=== PATIENT | female | born 1990 | race Caucasian/White ===

== ENCOUNTER 2018-06-29 08:59 | Emergency (ER) | payer MEDICAID ==
[~2018-06-29] VITALS: Ht 149.9 cm; Wt 52.7 kg
[2018-06-29 09:03] VITALS: Ht 149.9 cm; Wt 52.7 kg
[2018-06-29] MEDS ORDERED: PRENAVITE1 TAB PO (09:04)
[2018-06-29 09:40] LABS: BASOPHILS 0.2 % (0-2); EOSINOPHILS 0.6 % (0-7); HEMATOCRIT 33.9 % (36.0-48.0); HEMOGLOBIN 11.4 g/dL (12-16); IMMATURE GRANULOCYTES 0.3 % (0-5); LYMPHOCYTES 26.8 % (15-50); MCH 30.3 pg (26.0-34.0); MCHC 33.6 g/dL (31.0-37.0); MCV 90.2 fL (80.0-100.0); MEAN PLATELET VOLUME 10.9 fL (7.4-10.4); MONOCYTES 5.7 % (2-11); NEUTROPHILS 66.4 % (40-80); PLATELET COUNT 198 10x3/uL (130-400); RBC 3.76 10x6/uL (4.00-5.40); RDW 15.1 % (11.5-14.5); WBC 9.5 10x3/uL (4.8-10.8)
[2018-06-29 09:47] LABS: APPEARANCE CLEAR (CLEAR); BACTERIA MODERATE /hpf (NONE SEEN); BILIRUBIN NEGATIVE (NEGATIVE); COLOR YELLOW (YELLOW); EPITHELIAL CELLS 0-5 /hpf (0-5); GLUCOSE NEGATIVE (NEGATIVE); KETONE NEGATIVE (NEGATIVE); NITRITE NEGATIVE (NEGATIVE); PROTEIN NEGATIVE (NEGATIVE); RED CELLS - URINE 0-5 /hpf (0-5); SPECIFIC GRAVITY 1.015 (1.005-1.020); UROBILINOGEN NORMAL (NORMAL); WHITE CELLS - URINE 0-5 /hpf (0-5)
[2018-06-29 10:02] LABS: ALBUMIN 2.7 g/dL (3.4-5.0); ALKALINE PHOSPHATASE 53 U/L (46-116); ALT (SGPT) 30 U/L (10-68); BILIRUBIN - TOTAL 0.37 mg/dL (0.2-1.3); CALC OSMOLALITY 271 mosm/kg (275-300); CALCIUM 8.4 mg/dL (8.5-10.1); CARBON DIOXIDE 22.1 mmol/L (21.0-32.0); CHLORIDE - SERUM 103 mmol/L (98-107); CREATININE - SERUM 0.7 mg/dL (0.6-1.3); GLUCOSE 78 mg/dL (74-106); POTASSIUM - SERUM 3.7 mmol/L (3.5-5.1); PROTEIN - SERUM 6.5 g/dL (6.4-8.2); SODIUM 137 mmol/L (136-145); UREA NITROGEN 11 mg/dL (7-18); eGFR NON AFRICAN AMERICAN > 90 mL/min (90-120)
[2018-06-29 10:28] LABS: HCG - QUANTITATIVE (MATERNAL) 41644 mIU/mL
[2018-06-29] MEDS ORDERED: MACROBID100 MG PO (12:35)
[2018-06-29 12:55] VITALS: BP 104/68
== END 2018-06-29 12:56 | disposition home or self-care (01) ==
LOC: D.ER 08:59
PROVIDERS: Family Medicine
DX: O23.42 Unspecified infection of urinary tract in pregnancy, second trimester (principal); Z3A.18 18 weeks gestation of pregnancy; O20.9 Hemorrhage in early pregnancy, unspecified

== ENCOUNTER → 2018-09-21 12:10 | Outpatient (CLI) | payer MEDICAID ==
[2018-06-29 09:03] VITALS: BMI 23.4
[~2018-09-21 12:10] MED LIST: MACROBID100 MG PO; PRENAVITE1 TAB PO
[2018-09-21 12:48] LABS: APPEARANCE SL CLDY (CLEAR); BACTERIA MODERATE /hpf (NONE SEEN); BILIRUBIN NEGATIVE (NEGATIVE); CALCIUM OXALATE CRYSTALS 0-5 /hpf (NONE SEEN); COLOR YELLOW (YELLOW); EPITHELIAL CELLS 0-5 /hpf (0-5); GLUCOSE NEGATIVE (NEGATIVE); KETONE NEGATIVE (NEGATIVE); MUCUS <1+ /lpf (NONE SEEN); NITRITE NEGATIVE (NEGATIVE); PROTEIN NEGATIVE (NEGATIVE); SPECIFIC GRAVITY 1.025 (1.005-1.020); UROBILINOGEN NORMAL (NORMAL); WHITE CELLS - URINE OCC /hpf (0-5)
== END | disposition home or self-care (01) ==
LOC: D.LDO 12:10
PROVIDERS: Obstetrics & Gynecology; ATTEND Obstetrics & Gynecology
DX: O26.893 Other specified pregnancy related conditions, third trimester (principal); Z3A.30 30 weeks gestation of pregnancy; R31.9 Hematuria, unspecified

== ENCOUNTER 2018-11-22 08:53 | Inpatient (IN) | payer MEDICAID ==
[2018-11-22] VITALS (11 sets, daily range): BP systolic 92–109; BP diastolic 55–64; BMI 27.1
[2018-11-22 10:16] LABS: HEMATOCRIT 31.9 % (36.0-48.0); HEMOGLOBIN 9.5 g/dL (12-16); MCH 23.2 pg (26.0-34.0); MCHC 29.8 g/dL (31.0-37.0); MCV 77.8 fL (80.0-100.0); MEAN PLATELET VOLUME 10.7 fL (7.4-10.4); RBC 4.1 10x6/uL (4.00-5.40); RDW 18.2 % (11.5-14.5); WBC 17.3 10x3/uL (4.8-10.8)
[2018-11-22 12:45] LABS: UDS - AMPHET NEGATIVE QUAL (NEGATIVE); UDS - BARB NEGATIVE QUAL (NEGATIVE); UDS - BENZO NEGATIVE QUAL (NEGATIVE); UDS - COCAINE NEGATIVE QUAL (NEGATIVE); UDS - OPIATE NEGATIVE QUAL (NEGATIVE); UDS - PCP NEGATIVE QUAL (NEGATIVE); UDS - THC NEGATIVE QUAL (NEGATIVE)
--- NOTE | 2018-11-22 15:01 | NUR ---
RECEIVED PT FROM VIA BED TO ROOM 1273. BED LOCKED AND PLACED IN LOW POSITION. VSS. FUNDUS FIRM AT U/U. RUBRA LOCHIA MOD AMT. NO CLOTS EXPRESSED ON FUNDAL MASSAGE. ABDOMINAL DRESSING DRY WITH 3 AREAS MARKED WITH PEN. ICE PACK TO INCISION. NEG HOMANS' SIGN. PPP. NO EDEMA NOTED TO BLE. SCDS ON BLE. PUMP ON. PIV CLEAR TO LEFT WRIST. NS WITH PITOCIN INFUSING AT 125 ML/HR. SL TO RIGHT HAND. SITE CLEAR. NESBITT TO GRAVITY DRAINING DARK, YELLOW URINE. PT STATES PAIN OF "8" ON 0-10 PAIN SCALE ON ARRIVAL TO ROOM. RR NURSE STATES "I GAVE HER ALL I COULD GIVE HER FOR PAIN". PT ORIENTED TO ROOM, BED, AND CALL LIGHT. SR UP X2. CALL LIGHT IN REACH.
--- NOTE | 2018-11-22 15:10 | NUR ---
TORADOL 30 MG GIVEN PER D. ZANA ANDERSON IVP FOR PT C/O BURNING PAIN OF "8" ON 0-10 PAIN SCALE. PT INSTRUCTED ON MED. VERBALIZES UNDERSTANDING.
--- NOTE | 2018-11-22 15:13 | NUR ---
PT C/O NAUSEA. NO EMESIS NOTED. ZOFRAN 4 MG GIVEN SIVP OVER 2 MINUTES.
--- NOTE | 2018-11-22 15:15 | NUR ---
DILAUDID DIRECTOR DERMATOLOGY STARTED ORDERED. PT INSTRUCTED ON MEDICATION AND USE OF BUTTON.
--- NOTE | 2018-11-22 15:50 | NUR ---
PT INSTRUCTED ON USE OF INCENTIVE SPIROMETER- PULLS 1800. ALSO INSTRUCTED TO COUGH AND DEEP BREATHE. SURGICAL SPLINT PILLOW PROVIDED TO PT. PT DEMONSTRATES UNDERSTANDING.
--- NOTE | 2018-11-22 16:40 | NUR ---
PT LYING IN SEMI-GRAJEDA'S POSITION. SLIGHTLY DROWSY, WAKES UPON ENTERING ROOM. ABDOMINAL DRESSING WITHOUT NEW DRAINAGE, DRY. FRESH ICE PACK TO INCISION. SEVERAL GOLF BALL SIZED AND 1 SOFTBALL SIZED CLOT NOTED ON CHUX/PERIPAD. FUNDUS MASSAGED. FIRM AT U/1. NO CLOTS OR BLOOD EXPELLED ON FUNDAL MASSAGE. PERICARE DONE. RUBRA LOCHIA MOD AMT. CHUX, TOWEL AND PERIPAD CHANGED. PT DENIES NAUSEA. LEMON-NEWTOK SODA PROVIDED.
--- NOTE | 2018-11-22 18:32 | NUR ---
I/O COMPLETED. PERICARE DONE. BED LINENS, CHUX, PINK PAD AND PERIPAD CHANGED. MOD RUBRA LOCHIA NOTED. NO CLOTS NOTED. PT REPOSITIONS TO RIGHT SIDE. PROPPED WITH PILLOW. ICE WATER PROVIDED TO PT. PT ENCOURAGED TO INCREASE PO FLUID INTAKE.
--- NOTE | 2018-11-22 18:49 | NUR ---
REPORT GIVEN TO ON-COMING SHIFT.
--- NOTE | 2018-11-22 19:27 | NUR ---
SHIFT ASSESSMENT COMPLETED AT THIS TIME, PATIENT SITTING UP IN BED, REMAINS AT BEDSIDE IN OPEN CRIB. VS WNL, LOW TRANSVERSE ABDOMINAL DRESSING IN PLACE WITH THREE MARKED SPOTS OF SEROSANGUINOUS DRAINAGE, PERIPAD WITH SCANT RUBRA BLEEDING NOTED. NESBITT CATHETER DRAINING VIA GRAVITY, APPX 35 ML CONCENTRATED URINE NOTED IN UROMETER. SCD BOOTS IN PLACE, REMOVED FOR SKIN INSPECTION, NO REDNESS OR OTHER PROBLEMS NOTED, REATTACHED TO WORKING MACHINE. BED LOCKED IN LOW POSITION, SIDE RAILS UP X2, CALL HERNANDEZ AND TRAY TABLE IN REACH. ICE PACK REMAINS IN PLACE TO ABDOMEN, ICE WATER AND SPRITE ON BEDSIDE TABLE ALONG WITH INCENTIVE SPIROMETER. PT HAS PORTABLE POWER TOOL REPAIRER IN PLACE AND STATES THAT SHE IS USING IT TO RELIEVE HER PAIN. PT ASSISTED WITH REPOSITIONING TO RIGHT SIDE AND PILLOW PLACED BEHIND HER BACK FOR COMFORT. NO FURTHER NEEDS IDENTIFIED. WILL CONTINUE TO MONITOR.
--- NOTE | 2018-11-22 20:00 | NUR ---
LAB CALLED AT THIS TIME TO REMIND THEM OF THE TIMED 1999 BLOOD DRAW.
--- NOTE | 2018-11-22 20:38 | NUR ---
LAB AT BEDSIDE FOR 2000 TIMED DRAW.
[2018-11-22 20:56] LABS: HEMATOCRIT 31.7 % (36.0-48.0); HEMOGLOBIN 9.9 g/dL (12-16); MCH 24.4 pg (26.0-34.0); MCHC 31.2 g/dL (31.0-37.0); MCV 78.3 fL (80.0-100.0); PLATELET COUNT 256 10x3/uL (130-400); RBC 4.05 10x6/uL (4.00-5.40); RDW 17.2 % (11.5-14.5); WBC 18.8 10x3/uL (4.8-10.8)
--- NOTE | 2018-11-22 20:57 | NUR ---
PT SITTING UP IN BED TRYING TO BREASTFEED INFANT, NURSERY RN CALLED FOR ASSISTANCE. TORADOL 30MG SLOW IVP ADMINISTERED AT THIS TIME FOR 8/10 PAIN. APPX 150ML YELLOW URINE NOTED IN BAG. ICE WATER PROVIDED PER REQUEST. NO FURTHER NEEDS IDENTIFIED, WILL CONTINUE TO MONITOR.
--- NOTE | 2018-11-22 21:30 | NUR ---
PT RESTINQ QUIETLY, IN HER ARMS. DENIES NEEDS, WILL CONTINUE TO MONITOR
[2018-11-22 22:02] LABS: LYMPHOCYTES 26 % (15-50); MONOCYTES 2 % (2-11); NEUTROPHILS 72 % (40-80); PLATELET ESTIMATE NORMAL
--- NOTE | 2018-11-22 22:11 | NUR ---
MCBRIDE AT NURSES STATION, LAB RESULTS REPORTED, NO NEW ORDERS NOTED.
--- NOTE | 2018-11-22 23:02 | NUR ---
PATIENT RESTING QUIETLY WITH EYES OPEN. VS TAKEN, WNL. PT RATES HER PAIN 5/10. ACCREDITED FARM MANAGER IN USE. PERCIARE PERFORMED, SMALL RUBRA LOCHIA WITH NO CLOTS NOTED. CLEAN PADS PLACED, AND FRESH ICE PACK PROVIDED FOR ABDOMEN. PT DENIES OTHER NEEDS AT THIS TIME, WILL CONTINUE TO MONITOR.
--- NOTE | 2018-11-23 01:04 | NUR ---
PATIENT SITTING UP IN BED HOLDING INFANT, DENIES ANY NEEDS. WILL CONTINUE TO MONITOR.
--- NOTE | 2018-11-23 02:03 | NUR ---
FITNESS SALES CONSULTANT SYRINGE CHANGED AT THIS TIME. PT RATES HER PAIN /10, ENCOURAGED PT TO USE HER FITNESS SALES CONSULTANT. PT MUNA UNDERSTANDING. WILL CONTINUE TO MONITOR.
--- NOTE | 2018-11-23 04:39 | NUR ---
PATIENT LYING IN BED, RESPIRATIONS EVEN AND NON LABORED. BED REMAINS LOCKED IN LOW POSITION, SIDE RAILS UPX2, CALL HERNANDEZ AND TRAY TABLE IN REACH. WILL CONTINUE TO MONITOR
[2018-11-23 05:48] LABS: BASOPHILS 0.2 % (0-2); EOSINOPHILS 0.8 % (0-7); HEMATOCRIT 29.3 % (36.0-48.0); HEMOGLOBIN 9.1 g/dL (12-16); IMMATURE GRANULOCYTES 0.4 % (0-5); LYMPHOCYTES 19.4 % (15-50); MCH 24.3 pg (26.0-34.0); MCHC 31.1 g/dL (31.0-37.0); MCV 78.1 fL (80.0-100.0); MEAN PLATELET VOLUME 10.6 fL (7.4-10.4); MONOCYTES 6.3 % (2-11); NEUTROPHILS 72.9 % (40-80); PLATELET COUNT 248 10x3/uL (130-400); RBC 3.75 10x6/uL (4.00-5.40); RDW 17.2 % (11.5-14.5); WBC 15.6 10x3/uL (4.8-10.8)
--- NOTE | 2018-11-23 06:25 | NUR ---
TORADOL 30MG ADMINISTERED SLOW IVP PER MD ORDERS FOR PAIN. PERICARE DONE, SMALL RUBRA LOCHIA WITH NO CLOTS, NESBITT CONTINUES TO DRAIN TO GRAVITY.
[2018-11-23 07:19] LABS: RAPID PLASMA REAGIN Non Reactive (Non Reactive)
[2018-11-23 07:50] VITALS: BP 93/50
--- NOTE | 2018-11-23 07:50 | NUR ---
SHIFT ASSESSMENT COMPLETED AT THIS TIME. PT AAOX3. TO ROOM PER Li YIP, CLARICE AND PLACED IN MOTHER'S ARMS FOR FEEDING AT THIS TIME. HR-RRR, PPP, BREATH SOUNDS CLEAR & UNLABORED X2. BOWEL SOUNDS ACTIVE X4. PRIMAPORE DRESSING OVER BLI C/D/I WITH NO ADDITIONAL DRAINAGE NOTED TO DRESSING SINCE AM SHIFT ON 11/22/18. NESBITT CATH DRAINING TO GRAVITY WITH 175 ML CLEAR YELLOW URINE EMPTIED FROM UROMETER. I.S. AT BEDSIDE. PT REPORTS USING IT EVERY HR. CL MEAL TRAY SERVED AT BEDSIDE. DILAUDID DIRECTOR PHYSICAL REMAINS IN PLACE WITH NS WITH 20 U PITOCIN INFUSING AT 125ML/HR. PIV TO LT HAND C/D/I WITHOUT ERYTHEMA OR EDEMA NOTED TO SITE. FUNDUS FIRM, ML, U/1. SMALL LOCHIA RUBRA NOTED TO PERIPAD. PADS NOT CHANGED AT THIS TIME DUE TO PT . RATES PAIN 7/10 AT THIS TIME STATING "IT'S REALLY NOT TOO BAD." DENIES FURTHER NEEDS. WILL CONTINUE TO MONITOR PRN. BED LOW, WHEELS LOCKED, CALL LIGHT AND PHONE WITHIN REACH, SIDE RAILS UP X2.
--- NOTE | 2018-11-23 09:35 | NUR ---
CURRENT PITOCIN INFUSION COMPLETE. ORDERS RCVD TO ADVANCE PT. NESBITT CATH D/C'D WITH CATH TIP INTACT. 500 ML CLEAR YELLOW URINE NOTED IN NESBITT BAG. PIV SL AT THIS TIME. PERIPAD PLACED AT PERINEUM. WITH SMALL LOCHIA RUBRA NOTED. ADVISED PT TO CALL CUT OFF [employer] LIGHT WHEN SHE FEELS THE URGE TO VOID AND NOT TO GET UP WITHOUT ASSISTANCE. PT VERBALIZED UNDERSTANDING AND IS AGREEABLE TO POC. WILL CONTINUE TO MONITOR.
--- NOTE | 2018-11-23 10:38 | NUR ---
PT'S MOTHER TO NURSE DESK REPORTING PT NEEDS ICE WATER. SAME PROVIDED. UPON ENTERING ROOM PT SITTING UP IN BED AND REPORTS THAT SHE HAS BEEN UP TO VOID WITHOUT CALLING FOR ASSISTANCE. EDU PT ON NEED TO COMMUNICATE WITH A NURSE TO ENSURE PT SAFETY. PT VERBALIZED UNDERSTANDING. REPORTS SHE DID GET A LITTLE DIZZY WHEN GETTING UP, BUT DID NOT FALL. PT REPORTS NO CLOTS WHEN VOIDING. 300ML BLOOD TINGED URINE NOTED IN [place] HAT AND EMPTIED. ADVISED PT WE NEED TO CATCH URINE AT LEAST 1 MORE TIME. VERBALIZED UNDERSTANDING. RATES PAIN 8/10 AND REQUESTS PAIN MEDICATION. WILL RETURN WITH SAME. NO FURTHER NEEDS VOICED.
--- NOTE | 2018-11-23 10:50 | NUR ---
NORCO 10/325MG X1 TAB AND MOTRIN 600MG X1 TAB GIVEN FOR PAIN RATED 8/10 AT THIS TIME. PT DENIES FURTHER NEEDS. WILL CONTINUE TO MONITOR PRN.
--- NOTE | 2018-11-23 11:32 | NUR ---
PAIN REASSESSMENT COMPLETED. PT RATES PAIN 6/10 AND TOLERABLE. PT ATTEMPTING TO BREASTFEED AT THIS TIME AND ASKS FOR ASSISTANCE. ASSISTED PT WITH LATCHING TO LT BREAST. PROPER LATCH NOTED WITH SUCKING AND SWALLOWING NOTED. ADVISED PT THAT I WILL RETURN TO COMPLETE THE SUICIDE RISK SCREENING IN [facility]. PT VERBALIZED UNDERSTANDING. NO FURTHER NEEDS VOICED AT THIS TIME.
--- NOTE | 2018-11-23 12:15 | NUR ---
PT RINGS CALL LIGHT WITH REPORT SHE NEEDS TO USE THE RESTROOM. RN TO BEDSIDE. PT AMB TO BATHROOM PERSELF WITHOUT DIFFICULTY. NO DIZZINESS REPORTED AND STEADY GAIT NOTED. MESH PANTIES AND PERIPADS PROVIDED. CHUCKS AND PADS CHANGED. PACIFIER PROVIDED PER PT REQUEST. SUICIDE SCREENING COMPLETED. NO FURTHER NEEDS VOICED AT THIS TIME.
--- NOTE | 2018-11-23 13:14 | NUR ---
ROUNDS MADE. ICE WATER PROVIDED PER PT REQUEST. PT DENIES FURTHER NEEDS AT THIS TIME.
--- NOTE | 2018-11-23 14:02 | NUR ---
PT OUT OF ROOM. AMB IN HALLS. STEADY GAIT NOTED. NO NEEDS VOICED. WILL CONT TO MONITOR.
--- NOTE | 2018-11-23 15:11 | NUR ---
NORCO 10/325MG X1 TAB GIVEN FOR PAIN RATED 7/10 AT THIS TIME. ASSISTED PT WITH LATCHING TO RT BREAST. PT DENIES FURTHER NEEDS. WILL CONT TO MONITOR PRN.
--- NOTE | 2018-11-23 16:02 | NUR ---
ROUNDS MADE. PT SITTING UP IN BED INFANT. REFUSES VS AT THIS TIME DUE TO . DENIES NEEDS.
--- NOTE | 2018-11-23 18:38 | NUR ---
IV TO LT WRIST FLUSHES WELL. SL TO RT WRIST D/C'D WITH CATH TIP INTACT PER PT REQUEST. PT DENIES FURTHER NEEDS AT THIS TIME. WILL CONT TO MONITOR PRN.
--- NOTE | 2018-11-23 18:54 | NUR ---
PATIENT REPORT RECEIVED FROM ZANA MCGOWAN TO ASSUME PATIENT CARE.
--- NOTE | 2018-11-23 19:59 | NUR ---
PATIENT SITTING UP IN BED, SHIFT ASSESSMENT COMPLETED, SEE FLOWSHEET.
--- NOTE | 2018-11-23 20:01 | NUR ---
ADMINISTERED MOTRIN 600MG PO AND NORCO 10/325MG PO PER MD ORDERS AND PT REQUEST FOR 12/29 PAIN. SEE EMAR
[2018-11-23 20:02] VITALS: BP 98/55
--- NOTE | 2018-11-23 20:30 | NUR ---
PATIENT SUPPLIED WITH TOWELS, WASH CLOTHS, SOAP,SHAMPOO, CLEAN GOWN, AND SOCKS FOR HER SHOWER. PTS MOTHER REMAINS AT BEDSIDE WITH WHILE PT IS UP TO SHOWER. NO FURTHER NEEDS IDENTIFIED, WILL CONTINUE TO MONITOR.
--- NOTE | 2018-11-23 21:30 | NUR ---
PT RESTING QUIETLY IN BED, DENIES NEEDS AT THIS TIME, WILL CONTINUE TO MONITOR.
--- NOTE | 2018-11-23 23:45 | NUR ---
PATIENT RESTING QUIETLY IN BED HOLDING INFANT. FRESH ICE WATER PROVIDED PER PT REQUEST. NO FURTHER NEEDS IDENTIFIED. BED REMAINS LOCKED IN LOW POSITION, SIDE RAILS UPX2, CALL HERNANDEZ AND TRAY TABLE IN REACH. WILL CONTINUE TO MONITOR.
--- NOTE | 2018-11-24 00:50 | NUR ---
ZANA LANGE TO [facility], STATES THAT THE PT IS CRYING BECAUSE SHE IS WORRIED ABOUT HER BABY NOT EATING ENOUGH. EDUCATION PROVIDED PER ZANA LANGE AT THIS TIME.
--- NOTE | 2018-11-24 02:47 | NUR ---
PATIENT LYING IN BED WITH EYES OPEN HOLDING INFANT AT THIS TIME, MOTRIN 600 MG PO PER MD ORDERS AND PT C/O CRAMPING PAIN. SEE EMAR.
--- NOTE | 2018-11-24 04:30 | NUR ---
PT RESTING QUIETLY WITH EYES CLOSED, EASILY AROUSED TO VERBAL, DENIES NEEDS. REMAINS AT BEDSIDE IN OPEN CRIB.
--- NOTE | 2018-11-24 05:50 | NUR ---
PT RESTING QUIETLY WITH EYES OPEN, DENIES NEEDS AT THIS TIME. BED REMAINS LOCKED IN LOW POSITION, SIDE RAILS UPX2, CALL HERNANDEZ AND TRAY TABLE IN REACH. WILL CONTINUE TO MONITOR.
--- NOTE | 2018-11-24 08:19 | NUR ---
Toya Kami 11/24/18 S: Patient states she is having a hard time with latching infant to the breast. She delivered by and infant did latch after . has been really sleepy and hard to wake for feeding. States this is her first baby . She would like to breastfeed some but has no plans on in public because she is shy. States she is ok with doing both breast and formula. Denies pain with latching. Verbally agrees to contact nursery staff for infant next feeding to get help with latching. States she provided infant formula for last feeding. O: Congratulated on delivery and asked how can I help you with ? What are your thoughts or concerns with ? Validated patient concerns. Informed patient takes time, practice, and patience. Both mother and infant are learning how to breastfeed together. Explained breastmilk composition, feeding cues, positions, and how to verify latch is correct. Demonstrated how to hold infant in laid back position. This position will take pressure off your stomach, it allows infant to be in complete control with latching because is directly in front of breast, and is comfort for both mother and infant. Supply and demand what infant takes out, your body will make more of, your body will make milk as long as there is a demand. Explained normal feeding patterns for a breastfed infant including how often may eat and the time frame remains latch can/will vary per feeding. This is normal behavior of a breastfed . It is normal for to be sleepy and has to be waken to feed. Provided tips on ways to stimulate to wake for feedings. Placing infant skin to skin can help with infant led . This will help with self latching, you will just need to support infant head and body. Asked if any nipple pain with latching? Encouraged to ask with with next feeding. A: Patient first child . Infant tends to sleep and is hard to wake for feedings. Needs help with latching to the breast. P: Continue to promote exclusively during hospital visit. Trenton Rivas, CLC
[2018-11-24 08:20] VITALS: BP 96/66
--- NOTE | 2018-11-24 08:45 | NUR ---
LUCA, LIASON IN ROOM, SPEAKING WITH PT REGARDING BREASFEEDING. PT DENIES ALL OTHER NEEDS AT THIS TIME.
--- NOTE | 2018-11-24 09:32 | NUR ---
Toya Mcclure 11/24/18 Nursery nurse and CLC enter room by patient request for help with latching. Nursery nurse explained to patient how to stimulate infant to wake for feeding. Observed patient latch on the left breast in cradle position at 9:15. Infant was turned tummy to tummy, directly in front of breast, mouth 140 degrees, sucking in a rocking motion. Observed sucking and could hear infant sucking. Both and patient appear content with feeding. No discomfort or concerns expressed. Trenton Rivas, CLC
--- NOTE | 2018-11-24 13:20 | NUR ---
PT CALLS OUT FISH GRADER LIGHT AND REQUESTS PAIN MEDICATION, MEDICATION ADM RECORD REVIEWED WITH PT. SEE EMAR FOR ALL MEDS ADM BY THIS RN. PT IS SITTING UP IN THE BED HOLDING INFANT AT THIS TIME. SUP X 2, CALL LIGHT AND PHONE WITHIN REACH.
[2018-11-24] MEDS ORDERED: HYDROCODON-ACE1 EA10 PO (15:41)
[2018-11-24] MEDS ORDERED: IBUPROFEN600 MG PO (15:42)
--- NOTE | 2018-12-09 19:34 | OP ---
PATIENT NAME: DO AVILEZ MEDICAL RECORD: [id number] :91 LOCATION:[facility].[id number] ADMISSION DATE:11/22/18 SURGEON: JUAN MANUEL BROOKS MD DATE OF OPERATION: 11/22/2018 PREOPERATIVE DIAGNOSES: 1. Term intrauterine at 39 weeks. 2. History of previous section. POSTOPERATIVE DIAGNOSES: 1. Term intrauterine at 39 weeks. 2. History of previous section. PROCEDURE: Repeat low transverse section. SURGEON: Juan Manuel Brooks MD ANESTHESIA: Regional via spinal. INTRAVENOUS FLUIDS: Per anesthesia record. ESTIMATED BLOOD LOSS: 1000 cc. FINDINGS: 1. Viable infant, Apgars 9 at 1 and 9 at 5. 2. Placenta delivered manually intact, 3-vessel cord noted. 3. Normal adnexa bilaterally. COMPLICATIONS: None apparent. SPECIMENS: Placenta and cord for gases. PROCEDURE IN DETAIL: The patient was taken to the operating room where regional anesthesia was achieved without difficulty via spinal. The patient was then prepped and draped in normal sterile fashion in the dorsal supine position. SCDs were on and functioning normally. A Leach catheter was in place and was draining freely. Following prep and drape, a repeat Pfannenstiel skin incision was made, extended downward to the underlying subcutaneous fat to the level of fascia. The fascia was then excised carefully in the midline and the fascial incision was extended bilaterally using the Acosta scissors. The superior and inferior aspects of the fascial incision were then grasped with Renetta clamps times 2, tented upward, and sharply dissected from underlying rectus muscle using the Acosta scissors and the Bovie cautery. The rectus muscles were then bluntly in the midline and the peritoneum entered sharply at the superior aspect of the incision. Careful dissection of the peritoneum was performed and adhesions involving the uterus and anterior abdominal wall were using the Metzenbaum scissors. At this point, a bladder flap was created by excising the anterior leaf of broad ligament across the lower uterine segment. A bladder blade was placed into the pelvis. A low transverse incision was made and the vertex was delivered atraumatically followed by the body. The was bulb suctioned upon delivery, the cord was clamped times 2, cut, and the infant was handed to the OPERATIVE REPORT [id number] DO AVILEZ awaiting nursery team. At this point, cord was obtained for gases and the placenta was removed manually intact, 3-vessel cord was noted. Uterus was exteriorized, cleared of all clots and debris with a lap sponge and the uterine incision was repaired with #0-Vicryl in a running locked fashion times 2. Good hemostasis noted. Posterior cul-de-sac was then thoroughly irrigated and uterus was replaced into the pelvis. The anterior cul-de-sac irrigated and the uterine incision was found to be hemostatic. Counts were correct at this time for needles, sponges, and instruments. The fascia was repaired with #0-looped PDS times 1 and the skin repaired with a running subcutaneous stitch using 3-0 Monocryl. Dermabond was then placed on the skin edges as well. The patient tolerated the procedure well, transferred to the postanesthesia recovery stable without incident. TRANSINT:[id number] Voice Confirmation ID: [id number] DOCUMENT ID: [id number] JUAN MANUEL BROOKS MD at 1934 CC: [id number] DICTATION DATE: 12/05/18 1532 FOAM CASTER: 12/05/181953 DIS IN 11/24/18 [facility] [address] [place] [address]
--- NOTE | 2019-02-09 11:41 | DS ---
PATIENT:DO AVILEZ :91 MEDICAL RECORD: [id number] DISCHARGE SUMMARY ADMISSION DATE: 11/22/18 DISCHARGE DATE: 11/24/18 HISTORY OF PRESENT ILLNESS: The patient was admitted on 11/22/2018. A 28-year-old -0-1-2 at 39 weeks and 1 day. The patient was admitted for repeat at 39 weeks. The patient with no significant past medical history. PAST SURGICAL HISTORY: Significant for times 2. ALLERGIES: TO SULFA. MEDICATIONS: The patient with medications including vitamins and Macrobid. FAMILY HISTORY: The patient reports no significant family history of disease. SOCIAL HISTORY: None. PHYSICAL EXAMINATION: VITAL SIGNS: On initial assessment, vital signs are stable. The patient was afebrile and normotensive. LUNGS: Clear to auscultation. CARDIOVASCULAR: Regular rate and rhythm. PELVIC: Uterus was appropriately sized and nontender. EXTREMITIES: Lower extremities were free of Homans sign, erythema, or swelling. The patient with a category 1 heart rate tracing with 140s, moderate variability. ASSESSMENT AND PLAN: At that time, 1. Term intrauterine at 39 weeks and 1 day. 2. History of previous section times 2. 3. Anemia. 4. Low anterior placenta. Plan for a repeat low transverse section. Hemoglobin 9.5. The patient was transfused preop 2 units of blood. The risks and benefits were explained. The patient voiced understanding and consent. Repeat was performed. Operative report is as dictated. The patient did well overnight on postop day #0, tolerating Dilaudid TIRE CARE MANAGER and IV Toradol for pain. The patient on IV fluids and tolerating a clear liquid diet. Leach catheter was left in overnight and urine output was found to be adequate. Lower extremities were free of erythema, Homans sign or swelling. On the morning of postop day #1, the patient was doing well. Vital signs are stable. The patient was afebrile and normotensive. Hemoglobin was stable after 2 units of packed red blood cells. Uterus was infraumbilical but appropriately tender. Incision was clean, dry, and intact. The patient was advanced to general diet and p.o. pain meds, ambulation was begun. The Lecah catheter was discontinued, the patient remained stable on postop day #1. DISCHARGE SUMMARY REPORT [id number] KATZ On the morning of postop day #2, vital signs remained stable. The patient was afebrile and normotensive. The patient was tolerating p.o. pain meds, general diet. Incision was clean, dry, and intact. Uterus was infraumbilical. The patient reported minimal lochia. The patient ambulating and voiding freely. The patient was discharged home on postop day #2 with instructions to follow up next week for wound check. TRANSINT:[id number] Voice Confirmation ID: [id number] DOCUMENT ID: [id number] SHIRA JAQUEZ MD at 1141 CC: [id number] DICTATION DATE: 02/06/19 1126 MERCHANT BANKER: 02/06/19 2340 DIS IN 11/24/18 [facility] [address] [place] [address]
== END 2018-11-24 15:06 | disposition home or self-care (01) | DRG 788 ==
LOC: D.LD 08:53 → D.SDCHOLD 12:00 → D.LD 12:00
PROVIDERS: ADMIT Obstetrics & Gynecology; ATTEND Obstetrics & Gynecology
PROC: 10D00Z1 Extraction of Products of Conception, Low, Open Approach (ICD-10-PCS; principal; 2018-11-22 12:00)
DX: O99.824 Streptococcus B carrier state complicating childbirth (principal); Z3A.39 39 weeks gestation of pregnancy; Z37.0 Single live birth; O34.211 Maternal care for low transverse scar from previous cesarean delivery; O99.02 Anemia complicating childbirth; O44.43 Low lying placenta NOS or without hemorrhage, third trimester

== ENCOUNTER 2019-01-30 09:29 | Emergency (ER) | payer MEDICAID ==
[~2019-01-30] VITALS: Ht 149.9 cm; Wt 52.3 kg
[~2019-01-30 09:29] MED LIST changes: +HYDROCODON-ACE1 EA10 PO; +IBUPROFEN600 MG PO
[2019-01-30 09:48] VITALS: Ht 149.9 cm; Wt 52.3 kg
[2019-01-30] MEDS ORDERED: PRENAVITE1 TAB PO (09:49)
[2019-01-30] MEDS ORDERED: ZOLOFT25 MG (09:50)
[2019-01-30] MEDS ORDERED: ZPAK PO (10:53)
[2019-01-30] MEDS ORDERED: FLUTICASONE PRO16 GM NASAL (10:54)
[2019-01-30] MEDS ORDERED: TESSALON PERLE100 MG PO (10:55)
[2019-01-30 11:16] VITALS: BP 126/74
== END 2019-01-30 11:16 | disposition home or self-care (01) ==
LOC: D.ER 09:29
DX: J01.90 Acute sinusitis, unspecified (principal)